=== PATIENT | female | born 1940 | race Two or more races ===

== ENCOUNTER 2017-11-13 14:21 | Emergency (ER) | payer MEDICARE ==
[~2017-11-13] VITALS: Ht 165.1 cm; Wt 49.0 kg
[~2017-11-13 14:21] MED LIST: PROP20TA7 PO; TEMA30CA5 PO
[2017-11-13] MEDS ORDERED: GUAI120013 PO (14:34)
[2017-11-13] MEDS ORDERED: CLONAZEPAM TAB 1MG PO (14:34)
[2017-11-13] MEDS ORDERED: DEXILANT 60 MG PO (14:34)
[2017-11-13] MEDS ORDERED: PROMETHAZINE-CODEINE SYRUP PO (14:34)
[2017-11-13] MEDS ORDERED: IPRATROPIUM BROMIDE 0.5 MG/2.5 ML NEBU NEB ONE (15:00)
[2017-11-13] MEDS ORDERED: ALBUTEROL SULFATE 2.5 MG/3 ML NEBU NEB ONE (15:00)
[2017-11-13] MEDS ORDERED: predniSONE 10 MG TABLET PO ONE (15:00)
[2017-11-13] MEDS ORDERED: predniSONE 50 MG TABLET ONE (15:02)
[2017-11-13] MEDS ORDERED: predniSONE 10 MG TABLET ONE (15:02)
[2017-11-13] MEDS ORDERED: IPRATROPIUM BROMIDE 0.5 MG/2.5 ML NEBU ONE (15:05)
[2017-11-13] MEDS ORDERED: ALBUTEROL SULFATE 2.5 MG/ 0.5 ML NEBU ONE (15:06)
[2017-11-13 15:57] LABS: CARBON DIOXIDE 25 mmol/L (21-32); CHLORIDE 102 mmol/L (98-107); GLUCOSE 95 mg/dL (74-106); POTASSIUM 4.4 mmol/L (3.5-5.1); UREA NITROGEN, BLOOD 21 mg/dL (7-18)
[2017-11-13 16:05] LABS: BASOPHILS # (AUTO) 0.1 K/uL (0.0-8.0); BASOPHILS % (AUTO) 0.5 % (0.0-2.0); EOSINOPHILS # (AUTO) 0.5 K/uL (0.0-0.7); HEMATOCRIT 45.3 % (31.2-41.9); HEMOGLOBIN 15.7 g/dL (10.9-14.3); LYMPHOCYTES # (AUTO) 4.8 K/uL (20.0-40.0); LYMPHOCYTES % (AUTO) 37.8 % (20.5-51.5); MEAN CORPUSCULAR HEMOGLOBIN 29.8 uug (24.7-32.8); MEAN CORPUSCULAR HGB CONC 35 g/dL (32.3-35.6); MONOCYTES % (AUTO) 7.7 % (0.0-11.0); NEUTROPHILS # (AUTO) 6.3 K/uL (1.8-8.9); PLATELET COUNT (AUTO) 418 K/uL (179-408); RED BLOOD CELL COUNT(AUTO) 5.27 MIL/uL (3.63-4.92); WHITE BLOOD COUNT (AUTO) 12.7 K/uL (3.8-11.8)
[2017-11-13 16:13] LABS: ALANINE AMINOTRANSFERASE 20 U/L (14-59); ALKALINE PHOSPHATASE 64 U/L (50-136); ASPARTATE AMINOTRANSFERASE 15 U/L (15-37); BILIRUBIN,DIRECT 0.1 mg/dL (0.0-0.2); BILIRUBIN,TOTAL 0.3 mg/dL (0.2-1.0); TOTAL PROTEIN, SERUM 8.2 g/dL (6.4-8.2)
--- NOTE | 2017-11-13 16:37 | NUR ---
Patient discharged to home in stable conditon. Written and verbal after care instructions given. Patient verbalizes understanding of instructions.
== END 2017-11-13 16:38 | disposition home or self-care (01) ==
LOC: ER 14:23
DX: J45.909 Unspecified asthma, uncomplicated (principal); E78.5 Hyperlipidemia, unspecified; I10 Essential (primary) hypertension; F17.210 Nicotine dependence, cigarettes, uncomplicated; Z79.899 Other long term (current) drug therapy
CPT/HCPCS: 36415; 70030-TC; 71045; 83605; 85025; 87040; 93005; A4663; J3590; J7512

== ENCOUNTER 2022-09-07 09:50 | Emergency (ER) | payer MEDICARE, OTHER ==
[~2022-09-07] VITALS: Ht 152.4 cm; Wt 52.6 kg
[~2022-09-07 09:50] MED LIST changes: +CLONAZEPAM TAB 1MG PO; +DEXILANT 60 MG PO; +GUAI120013 PO; +PROMETHAZINE-CODEINE SYRUP PO
[2022-09-07 10:24] LABS: *BILIRUBIN,URIN NEGATIVE (NEGATIVE); *CLARITY,URINE CLEAR (CLEAR); *COLOR,URINE YELLOW (YELLOW); *KETONES,URINE NEGATIVE (NEGATIVE); *UROBILINOGEN,URINE 0.2 E.U./dl (NORMAL); LEUKOCYTE ESTERASE ,URINE 2+ (NEGATIVE); NITRITE, URINE POSITIVE (NEGATIVE); PH,URINE 6.5 (5.0-8.0); UGLUCOSE NEGATIVE (NEGATIVE)
[2022-09-07 10:33] LABS: *BLOOD, URINE TRACE (NEGATIVE)
--- NOTE | 2022-09-07 10:38 | NUR ---
PT IS IN ROOM #2A. DR DIMAS EVALUATED THE PT.
[2022-09-07] MEDS ORDERED: CEPH500T PO (10:58)
--- NOTE | 2022-09-07 11:00 | NUR ---
PT WAS D/C'd TO HOME. D/C INSTRUCTIONS GIVEN TO THE PT BY DR DIMAS.
[2022-09-07 11:03] VITALS: BP 139/68
[2022-09-07 16:38] LABS: BACTERIA,URINE MANY /HPF (NONE SEEN); SQUAMOUS EPITHELIAL CELL,UR FEW /HPF (NONE SEEN); WBC,URINE 20-50 /HPF (0-3)
== END 2022-09-07 11:04 | disposition home or self-care (01) ==
LOC: ER 09:50
DX: N39.0 Urinary tract infection, site not specified (principal); R25.1 Tremor, unspecified; Z87.440 Personal history of urinary (tract) infections; Z87.891 Personal history of nicotine dependence
CPT/HCPCS: A4663